=== PATIENT | male | born 1980 | race Two or more races ===

== ENCOUNTER 2018-09-09 15:53 | Inpatient (IN) | payer SELFPAY ==
[~2018-09-09] VITALS: Ht 167.6 cm; Wt 59.9 kg
[2018-09-09] MEDS ORDERED: IPRATROPIUM BROMIDE (0.02%) 0.5MG/2.5ML NEB HHN STA (16:22)
[2018-09-09] MEDS ORDERED: ONDANSETRON HCL 4MG/2ML INJ IV STA (16:22)
[2018-09-09] MEDS ORDERED: ALBUTEROL (0.083%) 2.5MG/3ML NEB HHN STA (16:22)
[2018-09-09] MEDS ORDERED: FUROSEMIDE 20MG/2ML VIAL IVP ONE (16:30)
[2018-09-09] MEDS ORDERED: ASPIRIN 81MG TABLET PO ONE (16:30)
[2018-09-09] MEDS ORDERED: FENTANYL CITRATE/PF 50MCG/ML 2ML VIAL IV ONE (16:30)
[2018-09-09 16:55] LABS: BASOPHILS % 0.7 % (0.0-2.0); EOSINOPHILS % 0.9 % (0.0-5.0); HEMATOCRIT. 35.6 % (42.0-52.0); HEMOGLOBIN. 11.3 g/dL (14.0-18.0); MEAN CORPUSCULAR HEMOGLOBIN 27.3 pg (28.0-32.0); MEAN PLATELET VOLUME 7.9 fl (7.4-10.4); MONOCYTES % 8.7 % (2.0-8.0); NEUTROPHILS % 49.7 % (40.0-76.0); PLATELET 318 x1000/uL (130-400); RED BLOOD CELL COUNT 4.14 mill/uL (4.7-6.1); RED CELL DISTRIBUTION WIDTH 19.9 % (11.6-14.6)
[2018-09-09 16:56] LABS: CHLORIDE 103 mEq/L (98-107)
[2018-09-09 16:58] LABS: INR 1.6; PARTIAL THROMBOPLASTIN TIME 31.6 sec (23.4-31.0); PROTHROMBIN TIME 16.1 sec (9.1-11.1)
[2018-09-09] MEDS ORDERED: FAMOTIDINE 20MG/2ML VIAL IV SCH (17:00)
[2018-09-09 19:31] LABS: CLARITY URINE CLEAR (CLEAR); COLOR URINE YELLOW (YELLOW); KETONES URINE NEGATIVE (NEGATIVE); LEUKOCYTE ESTERASE URINE NEGATIVE (NEGATIVE); NITRITE URINE NEGATIVE (NEGATIVE); OCCULT BLOOD URINE NEGATIVE (NEGATIVE); PROTEIN URINE 1+ (NEGATIVE); SPECIFIC GRAVITY URINE 1.009 (1.005-1.030)
[2018-09-09 19:41] LABS: *COCAINE SCREEN URINE NEGATIVE (NEGATIVE); METHADONE URINE SCREEN NEGATIVE (NEGATIVE)
[2018-09-09 19:42] LABS: *AMPHETAMINES SCREEN URINE NEGATIVE (NEGATIVE); *BARBITURATES SCREEN URINE NEGATIVE (NEGATIVE); *BENZODIAZEPINES SCREEN URINE NEGATIVE (NEGATIVE); CANNABINOID URINE SCREEN NEGATIVE (NEGATIVE); OPIATES URINE SCREEN NEGATIVE (NEGATIVE); PHENCYCLIDINE URINE SCREEN NEGATIVE (NEGATIVE)
[2018-09-09 22:00] VITALS: BP 132/90
[2018-09-10] VITALS (17 sets, daily range): BP systolic 42–136; BP diastolic 15–95
[2018-09-10] MEDS: MORPHINE SULFATE 4 MG/ML CPJ (NOT FOR IM USE) IV PRN ×6 (00:30→21:45)
[2018-09-10] MEDS ORDERED: ONDANSETRON HCL 4MG/2ML INJ IV PRN (00:45)
[2018-09-10] MEDS ORDERED: DIGO125T82 MT (01:08)
[2018-09-10] MEDS ORDERED: LISI-186 MT (01:08)
[2018-09-10] MEDS ORDERED: WARF-53 MT (01:08)
[2018-09-10] MEDS ORDERED: CARV3.1242 MT (01:08)
[2018-09-10] MEDS ORDERED: FAMO20TA8 MT (01:08)
[2018-09-10] MEDS ORDERED: HYDR-4134 MT (01:08)
[2018-09-10] MEDS ORDERED: FURO40TA5 MT (01:08)
[2018-09-10] MEDS: HYDRALAZINE HCL 25MG TABLET PO SCH ×3 (05:47→22:32)
[2018-09-10] MEDS ORDERED: WARFARIN SODIUM 5MG TABLET PO NR ×2 (06:00→18:00)
[2018-09-10] MEDS ORDERED: IPRATROPIUM/ALBUTEROL 0.5-3(2.5)MG/3ML NEB HHN PRN (08:45)
[2018-09-10] MEDS: LISINOPRIL 5MG TABLET PO SCH ×2 (09:00→21:32)
[2018-09-10] MEDS: FUROSEMIDE 40MG/4ML VIAL IVP SCH ×2 (10:30→21:42)
[2018-09-10] MEDS: CARVEDILOL 3.125 MG TABLET PO SCH ×2 (10:31→21:31)
[2018-09-10] MEDS: FAMOTIDINE 20MG TABLET PO SCH ×2 (10:31→19:34)
[2018-09-10 11:22] LABS: INR 1.6; PROTHROMBIN TIME 16.1 sec (9.1-11.1)
[2018-09-10] MEDS: BUDESONIDE 0.5MG/2ML NEB HHN SCH ×2 (12:04→20:40)
[2018-09-10] MEDS: IPRATROPIUM/ALBUTEROL 0.5-3(2.5)MG/3ML NEB HHN SCH ×3 (12:05→20:40)
[2018-09-10] MEDS ORDERED: DIGOXIN 125MCG TABLET PO SCH (18:00)
[2018-09-11] VITALS (8 sets, daily range): BP systolic 101–124; BP diastolic 63–85
[2018-09-11] MEDS: IPRATROPIUM/ALBUTEROL 0.5-3(2.5)MG/3ML NEB HHN SCH ×3 (00:23→09:55)
[2018-09-11] MEDS: MORPHINE SULFATE 4 MG/ML CPJ (NOT FOR IM USE) IV PRN ×4 (01:32→09:56)
[2018-09-11] MEDS: HYDRALAZINE HCL 25MG TABLET PO SCH (06:02)
[2018-09-11 07:48] LABS: CHLORIDE 98 mEq/L (98-107)
[2018-09-11 07:51] LABS: BASOPHILS % 0.8 % (0.0-2.0); EOSINOPHILS % 2.4 % (0.0-5.0); HEMATOCRIT. 33.7 % (42.0-52.0); HEMOGLOBIN. 10.8 g/dL (14.0-18.0); LYMPHOCYTES % 37.8 % (20.0-50.0); MEAN CORPUSCULAR HEMOGLOBIN 27.5 pg (28.0-32.0); MEAN CORPUSCULAR VOLUME 85.3 fL (80.0-94.0); MEAN PLATELET VOLUME 8.2 fl (7.4-10.4); MONOCYTES % 10.7 % (2.0-8.0); NEUTROPHILS % 48.3 % (40.0-76.0); PLATELET 310 x1000/uL (130-400); RED BLOOD CELL COUNT 3.95 mill/uL (4.7-6.1); RED CELL DISTRIBUTION WIDTH 19.5 % (11.6-14.6)
[2018-09-11 08:39] LABS: INR 1.7; PROTHROMBIN TIME 17.3 sec (9.1-11.1)
[2018-09-11] MEDS: FAMOTIDINE 20MG TABLET PO SCH (09:00)
[2018-09-11] MEDS: FUROSEMIDE 40MG/4ML VIAL IVP SCH (09:00)
[2018-09-11] MEDS: CARVEDILOL 3.125 MG TABLET PO SCH (09:10)
[2018-09-11] MEDS: LISINOPRIL 5MG TABLET PO SCH (09:10)
[2018-09-11] MEDS: BUDESONIDE 0.5MG/2ML NEB HHN SCH (09:55)
[2018-09-11] MEDS ORDERED: WARFARIN SODIUM 5MG TABLET PO SCH (18:00)
== END 2018-09-11 14:00 | disposition home or self-care (01) | DRG 194 ==
LOC: ER 15:53 → 5EST 17:07 → EDBEDREQ 17:11 → EDBEDREQTM 17:11 → ENRESERV 20:16
PROVIDERS: ADMIT Internal Medicine; ATTEND Internal Medicine
DX: I11.0 Hypertensive heart disease with heart failure (principal); K92.0 Hematemesis; D68.9 Coagulation defect, unspecified; R18.8 Other ascites; J44.1 Chronic obstructive pulmonary disease with (acute) exacerbation; I42.0 Dilated cardiomyopathy; I50.43 Acute on chronic combined systolic (congestive) and diastolic (congestive) heart failure; F15.90 Other stimulant use, unspecified, uncomplicated; K46.9 Unspecified abdominal hernia without obstruction or gangrene; F17.210 Nicotine dependence, cigarettes, uncomplicated; F41.9 Anxiety disorder, unspecified; I25.10 Atherosclerotic heart disease of native coronary artery without angina pectoris; Z79.01 Long term (current) use of anticoagulants; Z82.49 Family history of ischemic heart disease and other diseases of the circulatory system; Z86.711 Personal history of pulmonary embolism; Z95.810 Presence of automatic (implantable) cardiac defibrillator; I25.2 Old myocardial infarction
CPT/HCPCS: 36415; 71045; 74176; 80048; 80305; 83605; 83735; 83880; 84145; 84484; 86850; 86900; 93005; 93306; 96374; 96375; 99291; J1940; J2270; J2405; J3010; J3490; J7611; J7620; J7626